=== PATIENT | female | born 1955 | race Caucasian/White ===

== ENCOUNTER 2019-05-04 20:11 | Emergency (ER) | payer OTHER ==
--- NOTE | 2019-05-04 20:47 | EDPHYS ---
Physician Documentation [facility] Name: Cookie Keller Age: 64 yrs Sex: Female : 1955 Arrival Date: 05/04/2019 Time: 20:26 Bed Waiting Private MD: ED Physician Francisco Mclaughlin HPI: 05/05 01:28 This 64 yrs old Female presents to ER via Ambulatory with complaints of tw4 Allergic Reaction. 01:28 The patient presents with nasal itching. Associated signs and symptoms: The patient has tw4 no apparent associated signs or symptoms. Possible causes: poison rubi. At home the patient or guardian has treated the symptoms with nothing. Severity of symptoms: At their worst the symptoms were moderate. 01:30 Onset: The symptoms/episode began/occurred 2 day(s) ago. The patient has not tw4 experienced similar symptoms in the past. Historical: - Allergies: 05/04 20:33 No Known Allergies; ss - PMHx: 20:33 COPD; Hypertension; sciatica; ss - PSHx: 20:33 Hysterectomy; Lumpectomy- R breast; ss - Immunization history:: Adult Immunizations up to date. - Coronavirus screen:: The patient has NOT traveled to [place], [place], or [place] in the past 14 days. Proceed with normal triage process as indicated. - Social history:: Smoking status: Patient reports the use of cigarette tobacco products, smokes one pack cigarettes per day. - Ebola Screening: : Patient denies exposure to infectious person Patient denies travel to an Ebola-affected area in the 21 days before illness onset. ROS: 05/05 01:30 Constitutional: Negative for fever, chills, and weight loss, Eyes: Negative for injury, tw4 pain, redness, and discharge, Cardiovascular: Negative for chest pain, palpitations, and edema, Respiratory: Negative for shortness of breath, cough, wheezing, and pleuritic chest pain, Abdomen/GI: Negative for abdominal pain, nausea, vomiting, diarrhea, and constipation, Back: Negative for injury and pain. Skin: Positive for rash, of the right cheek, left cheek and chin, diffusely. Exam: 01:30 Constitutional: This is a well developed, well nourished patient who is awake, alert, tw4 and in no acute distress. 01:30 Eyes: Pupils equal round and reactive to light, extra-ocular motions intact. Lids and lashes normal. Conjunctiva and sclera are non-icteric and not injected. Cornea within normal limits. Periorbital areas with no swelling, redness, or edema. Chest/axilla: Normal chest wall appearance and motion. Nontender with no deformity. No lesions are appreciated. Cardiovascular: Regular rate and rhythm with a normal S1 and S2. No gallops, murmurs, or rubs. Normal PMI, no JVD. No pulse deficits. Respiratory: Lungs have equal breath sounds bilaterally, clear to auscultation and percussion. No rales, rhonchi or wheezes noted. No increased work of breathing, no retractions or nasal flaring. Abdomen/GI: Soft, non-tender, with normal bowel sounds. No distension or tympany. No guarding or rebound. No evidence of tenderness throughout. Back: No spinal tenderness. No costovertebral tenderness. Full range of motion. 01:30 Head/face: Noted is rash, that is urticarial. 01:30 Skin: urticaria, on the right cheek, left cheek and chin. Vital Signs: 05/04 20:33 Pulse 108; Resp 16; Temp 98.4(TE); Pulse Ox 97% on R/A; Weight 69.85 kg; Height 5 ft. 4 ss in. (162.56 cm); Pain 1/10; 20:34 BP 140 / 73; ss 20:33 Body Mass Index 26.43 (69.85 kg, 162.56 cm) MDM: 20:[address] [facility] 05/05 01:30 Differential diagnosis: angioedema, Hereditary Angioedema urticaria. Data reviewed: tw4 vital signs, nurses notes. Test interpretation: by ED physician or midlevel provider: not applicable. Counseling: I had a detailed discussion with the patient and/or guardian regarding: the historical points, exam findings, and any diagnostic results supporting the discharge/admit diagnosis. Administered Medications: 05/04 08:50 Drug: predniSONE 60 mg Route: PO; ss 20:58 Follow up: Response: Medication administered at discharge. Disposition: 05/04/19 20:47 Discharged to Home. Impression: Allergic contact dermatitis due to plants, except food. - Condition is Stable. - Discharge Instructions: Allergies, Adult, Poison Rubi Dermatitis. - Prescriptions for Medrol (Huber) 4 mg Oral Tablets, Dose Pack - take 1 tablet by ORAL route as directed - follow package instructions; 1 packet. - Medication Reconciliation Form, Thank You Letter, Antibiotic Education, Prescription Opioid Use form. - Follow up: Private Physician; When: Upon discharge from the Emergency Department; Reason: Recheck today's complaints, Continuance of care. - Problem is new. - Symptoms are unchanged. Signatures: Tonya Montano RN RN Francisco Mclaughlin MD MD tw4 Corrections: (The following items were deleted from the chart) 20:58 20:47 05/04/2019 20:47 Discharged to Home. Impression: Allergic contact dermatitis due ss to plants, except food. Condition is Stable. Forms are Medication Reconciliation Form, Thank You Letter, Antibiotic Education, Prescription Opioid Use. Follow up: Private Physician; When: Upon discharge from the Emergency Department; Reason: Recheck today's complaints, Continuance of care. Problem is new. Symptoms are unchanged. tw4
--- NOTE | 2019-05-04 20:47 | ER ---
Nurse's Notes [facility] Name: Cookie Keller Age: 64 yrs Sex: Female : 1955 Arrival Date: 05/04/2019 Time: 20:26 Bed Waiting Private MD: Diagnosis: Allergic contact dermatitis due to plants, except food Presentation: 05/04 20:30 Presenting complaint: Patient states: Burned wood with poison STEFFANY two days ago. Now ss patient has red itchy rash to arms and neck. Transition of care: patient was not received from another setting of care. Onset: The symptoms/episode began/occurred this morning. Anaphylaxis evaluation, no signs or symptoms of anaphylaxis were noted. Onset of symptoms was May 03, 2019. Risk Assessment: Do you want to hurt yourself or someone else? Patient reports no desire to harm self or others. Initial Sepsis Screen: Does the patient meet any 2 criteria? No. Patient's initial sepsis screen is negative. Does the patient have a suspected source of infection? No. Patient's initial sepsis screen is negative. Care prior to arrival: None. 20:30 Method Of Arrival: Ambulatory ss 20:30 Acuity: MIMI 5 ss Historical: - Allergies: 20:33 No Known Allergies; ss - PMHx: 20:33 COPD; Hypertension; sciatica; ss - PSHx: 20:33 Hysterectomy; Lumpectomy- R breast; ss - Immunization history:: Adult Immunizations up to date. - Coronavirus screen:: The patient has NOT traveled to [place], [place], or [place] in the past 14 days. Proceed with normal triage process as indicated. - Social history:: Smoking status: Patient reports the use of cigarette tobacco products, smokes one pack cigarettes per day. - Ebola Screening: : Patient denies exposure to infectious person Patient denies travel to an Ebola-affected area in the 21 days before illness onset. Screenin:30 Abuse screen: Denies threats or abuse. Denies injuries from another. Nutritional ss screening: No deficits noted. Tuberculosis screening: Never had TB. Fall Risk None identified. Assessment: 20:30 General: Appears in no apparent distress. comfortable, Behavior is calm, cooperative, ss laughing during triage with family. Denies fever, feeling ill, fatigue, chills. Pain: Complains of pain in neck Pain currently is 1 out of 10 on a pain scale. Quality of pain is described as itching/ burning Pain began yesterday Is continuous. Respiratory: Airway is patent Respiratory effort is even, unlabored, Respiratory pattern is regular, symmetrical, Breath sounds are clear bilaterally. Denies cough, shortness of breath. GI: No signs and/or symptoms were reported involving the gastrointestinal system. Derm: Skin is pink, warm \T\ dry. Rash noted that is red, raised, neck. Musculoskeletal: Circulation, motion, and sensation intact. Range of motion: intact in all extremities. Vital Signs: 20:33 Pulse 108; Resp 16; Temp 98.4(TE); Pulse Ox 97% on R/A; Weight 69.85 kg; Height 5 ft. 4 ss in. (162.56 cm); Pain 1/10; 20:34 BP 140 / 73; ss 20:33 Body Mass Index 26.43 (69.85 kg, 162.56 cm) ED Course: 20:26 Patient arrived in ED. cf2 20:30 Patient has correct armband on for positive identification. Bed in low position. Call ss light in reach. 20:31 Guru Mobley FNP-C is [facility]. la1 20:31 Francisco Mclaughlin MD is Attending Physician. la1 20:32 Triage completed. ss 20:33 Arm band placed on right wrist. 20:57 Tonya Montano RN is Primary Nurse. ss 20:57 No provider procedures requiring assistance completed. Patient did not have IV access ss during this emergency room visit. Administered Medications: 08:50 Drug: predniSONE 60 mg Route: PO; 20:58 Follow up: Response: Medication administered at discharge. Outcome: 20:47 Discharge ordered by . tw4 20:57 Discharged to home ambulatory, with family. 20:57 Condition: good 20:57 Discharge instructions given to patient, family, Instructed on discharge instructions, the need for admit, medication usage, Demonstrated understanding of instructions, follow-up care, medications, Prescriptions given X 1. 20:58 Patient left the ED. Signatures: Tonya Montano RN RN Guru Mobley FNP-C [employer]1 Francisco Mclaughlin MD MD 4 Lizbeth Krishnamurthy cf2 Corrections: (The following items were deleted from the chart) 20:35 20:33 BP 145 / 105; Pulse 108bpm; Resp 16bpm; Pulse Ox 97% RA; Temp 98.4F Temporal; ss 69.85 kg; Height 5 ft. 4 in.; BMI: 26.4; Pain 1/10; ss
[2019-05-04] MEDS ORDERED: predniSONE 20 MG TAB ONE (20:50)
[2019-05-04 21:03] VITALS: TEMP 98.4; O2SAT 97
[2019-05-04 21:04] VITALS: BP 140/73
== END 2019-05-04 20:58 | disposition home or self-care (01) ==
LOC: ER 20:11
DX: L23.7 Allergic contact dermatitis due to plants, except food (principal); I10 Essential (primary) hypertension; F17.210 Nicotine dependence, cigarettes, uncomplicated
CPT/HCPCS: 99283; J7512

== ENCOUNTER 2019-05-15 09:16 | Emergency (ER) | payer OTHER ==
--- NOTE | 2019-05-15 11:31 | ER ---
Nurse's Notes [facility] Name: Cookie Keller Age: 64 yrs Sex: Female : 1955 Arrival Date: 05/15/2019 Time: 09:18 Bed 13 Private MD: Masoud Cuevas Diagnosis: Irritant contact dermatitis Presentation: 05/15 10:01 Presenting complaint: Patient states: was seen on May 02 and got steroids for poison iw valdo and rash is not getting any better, swelling to eyes/face and still breaking out. Transition of care: patient was not received from another setting of care. Onset of symptoms was May 15, 2019. Risk Assessment: Do you want to hurt yourself or someone else? Patient reports no desire to harm self or others. Initial Sepsis Screen: Does the patient meet any 2 criteria? No. Patient's initial sepsis screen is negative. Does the patient have a suspected source of infection? No. Patient's initial sepsis screen is negative. Care prior to arrival: None. 10:01 Method Of Arrival: Wheelchair iw 10:01 Acuity: MIMI 4 iw Triage Assessment: 10:05 General: Appears in no apparent distress. uncomfortable, Behavior is cooperative, bp appropriate for age, anxious. Pain: Denies pain. EENT: No deficits noted. Neuro: No deficits noted. Cardiovascular: No deficits noted. Respiratory: Airway is patent. GI: No signs and/or symptoms were reported involving the gastrointestinal system. : No signs and/or symptoms were reported regarding the genitourinary system. Derm: Rash noted that is itchy, raised. Musculoskeletal: No deficits noted. Historical: - Allergies: 10:03 No Known Allergies; iw - PMHx: 10:03 COPD; Hypertension; sciatica; iw - PSHx: 10:03 Hysterectomy; Lumpectomy- R breast; iw - Immunization history:: Adult Immunizations up to date. - Coronavirus screen:: The patient has NOT traveled to [place], [place], or [place] in the past 14 days. Proceed with normal triage process as indicated. - Social history:: Smoking status: Patient reports the use of cigarette tobacco products, smokes one pack cigarettes per day. - Ebola Screening: : Patient negative for fever greater than or equal to 101.5 degrees Fahrenheit, and additional compatible Ebola Virus Disease symptoms Patient denies exposure to infectious person Patient denies travel to an Ebola-affected area in the 21 days before illness onset No symptoms or risks identified at this time. Screenin:44 Abuse screen: Denies threats or abuse. Denies injuries from another. Nutritional bp screening: No deficits noted. Tuberculosis screening: No symptoms or risk factors identified. Fall Risk None identified. Assessment: 10:05 General: SEE TRIAGE NOTE. bp 11:00 Reassessment: Patient denies pain at this time. Respiratory: Airway is patent. bp 11:49 Reassessment: PT D/C HOME AMBULATORY, DX WITH CONTACT DERMATITIS. bp Vital Signs: 10:03 BP 129 / 84; Pulse 80; Resp 18; Temp 97.8; Pulse Ox 96% on R/A; Weight 69.85 kg; Height iw 5 ft. 3 in. (160.02 cm); 11:45 BP 131 / 79; Pulse 87; Resp 17; Temp 98; Pulse Ox 96% ; bp 10:03 Body Mass Index 27.28 (69.85 kg, 160.02 cm) iw ED Course: 09:18 Patient arrived in ED. as 09:18 Masoud Cuevas MD is Private Physician. as 09:57 Gladys Baltazar [facility]-C [facility]. snw 09:57 Monique Rodriguez MD is Attending Physician. snw 10:03 Triage completed. iw 10:03 Arm band placed on. iw 10:45 Masoud Callahan, BRUNILDA is Primary Nurse. bp 11:30 Masoud Cuevas MD is Referral Physician. snw 11:44 Patient has correct armband on for positive identification. Bed in low position. Call bp light in reach. Side rails up X2. 11:44 No provider procedures requiring assistance completed. Patient did not have IV access bp during this emergency room visit. Administered Medications: 11:42 Drug: predniSONE 40 mg Route: PO; bp 11:50 Follow up: Response: No adverse reaction bp 11:42 Drug: Atarax 50 mg Route: PO; bp 11:50 Follow up: Response: No adverse reaction bp 11:42 Drug: Pepcid 20 mg Route: PO; bp 11:50 Follow up: Response: No adverse reaction bp Outcome: 11:30 Discharge ordered by . snw 11:49 Discharged to home ambulatory. bp 11:49 Condition: stable 11:49 Discharge instructions given to patient, Instructed on discharge instructions, follow up and referral plans. medication usage, Demonstrated understanding of instructions, follow-up care, medications, Prescriptions given X 3. 11:51 Patient left the ED. bp Signatures: Gladys Baltazar, DATA SCIENCES DIRECTOR-C DATA SCIENCES DIRECTOR-Csnw Diya Holden Irene, RN RN iw Masoud Callahan RN RN bp
--- NOTE | 2019-05-15 11:32 | EDPHYS ---
Physician Documentation [facility] Name: Cookie Keller Age: 64 yrs Sex: Female : 1955 Arrival Date: 05/15/2019 Time: 09:18 Bed 13 Private MD: Masoud Cuevas ED Physician Monique Rodriguez HPI: 05/15 12:50 This 64 yrs old Female presents to ER via Wheelchair with complaints of Rash snw - poison valdo. 12:50 The patient's rash thought to be caused by Dermatitis. The rash is located on the body snw diffusely. The rash can be described as diffuse, erythematous. Onset: The symptoms/episode began/occurred suddenly, 2 week(s) ago, and became persistent. Associated signs and symptoms: Pertinent positives: burning sensation, itching, facial edema. Severity of symptoms: At their worst the symptoms were moderate severe in the emergency department the symptoms are unchanged. Treatment given at home: OTC lotion/cream. The patient has not experienced similar symptoms in the past. Pt had a round of steroids just post exposure at the end of April. Last steroid one week ago, symptoms have not abated. Historical: - Allergies: 10:03 No Known Allergies; iw - PMHx: 10:03 COPD; Hypertension; sciatica; iw - PSHx: 10:03 Hysterectomy; Lumpectomy- R breast; iw - Immunization history:: Adult Immunizations up to date. - Coronavirus screen:: The patient has NOT traveled to [place], [place], or [place] in the past 14 days. Proceed with normal triage process as indicated. - Social history:: Smoking status: Patient reports the use of cigarette tobacco products, smokes one pack cigarettes per day. - Ebola Screening: : Patient negative for fever greater than or equal to 101.5 degrees Fahrenheit, and additional compatible Ebola Virus Disease symptoms Patient denies exposure to infectious person Patient denies travel to an Ebola-affected area in the 21 days before illness onset No symptoms or risks identified at this time. ROS: 12:49 Constitutional: Negative for fever, chills, and weight loss, Eyes: Negative for injury, snw pain, redness, and discharge, ENT: Negative for injury, pain, and discharge, Neck: Negative for injury, pain, and swelling, Cardiovascular: Negative for chest pain, palpitations, and edema, Respiratory: Negative for shortness of breath, cough, wheezing, and pleuritic chest pain, Abdomen/GI: Negative for abdominal pain, nausea, vomiting, diarrhea, and constipation, Back: Negative for injury and pain, : Negative for injury, bleeding, discharge, and swelling, MS/Extremity: Negative for injury and deformity, Neuro: Negative for headache, weakness, numbness, tingling, and seizure. 12:49 Skin: Positive for rash, swelling, itching. Exam: 12:41 Constitutional: This is a well developed, well nourished patient who is awake, alert, snw and in no acute distress. 12:41 Eyes: Pupils equal round and reactive to light, extra-ocular motions intact. Lids and lashes normal. Conjunctiva and sclera are non-icteric and not injected. Cornea within normal limits. Periorbital areas with no swelling, redness, or edema. ENT: Nares patent. No nasal discharge, no septal abnormalities noted. Tympanic membranes are normal and external auditory canals are clear. Oropharynx with no redness, swelling, or masses, exudates, or evidence of obstruction, uvula midline. Mucous membranes moist. Neck: Trachea midline, no thyromegaly or masses palpated, and no cervical lymphadenopathy. Supple, full range of motion without nuchal rigidity, or vertebral point tenderness. No Meningismus. Chest/axilla: Normal chest wall appearance and motion. Nontender with no deformity. No lesions are appreciated. Cardiovascular: Regular rate and rhythm with a normal S1 and S2. No gallops, murmurs, or rubs. Normal PMI, no JVD. No pulse deficits. Respiratory: Lungs have equal breath sounds bilaterally, clear to auscultation and percussion. No rales, rhonchi or wheezes noted. No increased work of breathing, no retractions or nasal flaring. Abdomen/GI: Soft, non-tender, with normal bowel sounds. No distension or tympany. No guarding or rebound. No evidence of tenderness throughout. Back: No spinal tenderness. No costovertebral tenderness. Full range of motion. MS/ Extremity: Pulses equal, no cyanosis. Neurovascular intact. Full, normal range of motion. Neuro: Awake and alert, GCS 15, oriented to person, place, time, and situation. Cranial nerves II-XII grossly intact. Motor strength 5/5 in all extremities. Sensory grossly intact. Cerebellar exam normal. Normal gait. Psych: Awake, alert, with orientation to person, place and time. Behavior, mood, and affect are within normal limits. 12:41 Head/face: Noted is rash, consistent with contact dermatitis swelling, that is moderate, of the right eye, right cheek, left cheek, left eye and mouth. 12:41 Skin: Appearance: normal except for affected area, contact dermatitis. Vital Signs: 10:03 BP 129 / 84; Pulse 80; Resp 18; Temp 97.8; Pulse Ox 96% on R/A; Weight 69.85 kg; Height iw 5 ft. 3 in. (160.02 cm); 11:45 BP 131 / 79; Pulse 87; Resp 17; Temp 98; Pulse Ox 96% ; bp 10:03 Body Mass Index 27.28 (69.85 kg, 160.02 cm) iw MDM: 10:44 Patient medically screened. snw 12:49 Data reviewed: vital signs, nurses notes. Data interpreted: Pulse oximetry: on room air snw is 96 %. Interpretation: acceptable. Counseling: I had a detailed discussion with the patient and/or guardian regarding: the historical points, exam findings, and any diagnostic results supporting the discharge/admit diagnosis, the need for outpatient follow up, to return to the emergency department if symptoms worsen or persist or if there are any questions or concerns that arise at home. Special discussion: Based on the history and exam findings, there is no indication for further emergent testing or inpatient evaluation. I discussed with the patient/guardian the need to see the insulation professional for further evaluation of the symptoms. I discussed with the patient/guardian the need to see the primary care provider for further evaluation of the symptoms. Administered Medications: 11:42 Drug: predniSONE 40 mg Route: PO; bp 11:50 Follow up: Response: No adverse reaction bp 11:42 Drug: Atarax 50 mg Route: PO; bp 11:50 Follow up: Response: No adverse reaction bp 11:42 Drug: Pepcid 20 mg Route: PO; bp 11:50 Follow up: Response: No adverse reaction bp Disposition: 18:18 Co-signature as Attending Physician, Monique Rodriguez MD. ma2 Disposition: 05/15/19 11:30 Discharged to Home. Impression: Irritant contact dermatitis. - Condition is Stable. - Discharge Instructions: Contact Dermatitis, Hypertension. - Prescriptions for Vistaril 25 mg Oral capsule - take 2 capsule by ORAL route 4 times per day as needed for itching; 40 capsule. Pepcid 20 mg Oral Tablet - take 1 tablet by ORAL route every 12 hours for 10 days; 20 tablet. Prednisone 20 mg Oral Tablet - take 1 tablet by ORAL route every 12 hours for 5 days; 10 tablet. - Medication Reconciliation Form, Thank You Letter, Antibiotic Education, Prescription Opioid Use form. - Follow up: Masoud Cuevas MD; When: 2 - 3 days; Reason: Recheck today's complaints, Continuance of care, Re-evaluation by your physician. Follow up: Emergency Department; When: As needed; Reason: Worsening of condition. Signatures: Gladys Baltazar, AERODYNAMICS ENGINEER-C AERODYNAMICS ENGINEER-Csnw Elizabeth Phipps RN RN iw Masoud Callahan RN RN bp Alzahri, Mohammad, MD MD ma2 Corrections: (The following items were deleted from the chart) 11:51 11:30 05/15/2019 11:30 Discharged to Home. Impression: Irritant contact dermatitis. bp Condition is Stable. Forms are Medication Reconciliation Form, Thank You Letter, Antibiotic Education, Prescription Opioid Use. Follow up: Masoud Cuevas; When: 2 - 3 days; Reason: Recheck today's complaints, Continuance of care, Re-evaluation by your physician. Follow up: Emergency Department; When: As needed; Reason: Worsening of condition. snw
[2019-05-15] MEDS ORDERED: FAMOTIDINE 20 MG TAB ONE (11:43)
[2019-05-15] MEDS ORDERED: predniSONE 20 MG TAB ONE (11:43)
[2019-05-15] MEDS ORDERED: hydrOXYzine HCL 25 MG TAB ONE (11:43)
[2019-05-15 11:57] VITALS: O2SAT 96
[2019-05-15 11:58] VITALS: BP 131/79; TEMP 98
== END 2019-05-15 11:51 | disposition home or self-care (01) ==
LOC: ER 09:16
DX: L24.9 Irritant contact dermatitis, unspecified cause (principal); F17.210 Nicotine dependence, cigarettes, uncomplicated
CPT/HCPCS: 99283; J7512

== ENCOUNTER 2020-04-01 10:42 | Emergency (ER) | payer OTHER ==
--- OUTSIDE RECORDS SUMMARY | 2020-04-01 10:44 | XMS REPORT | Continuity of Care Document ---
:1955 Author Organization [facility] t Address [address] [place] [address] Dr. Javed [address] [place] [id number] Care Team Providers Name Role Phone Unavailable Unavailable Unavailable Problems This patient has no known problems. Allergies, Adverse Reactions, Alerts This patient has no known allergies or adverse reactions. Medications This patient has no known medications. Procedures This patient has no known procedures. Encounters Start End Encounter Admission Attending Care Care Encounter Source Date/Time Date/Time Type Type Clinicians Facility Department ID 2020-03-14 2020-03-14 Outpatient [id number] 08:30:00 08:30:00 Results This patient has no known results.
[2020-04-01] MEDS ORDERED: FENTANYL 50 MCG/PATCH TD ONE (11:00)
[2020-04-01] MEDS ORDERED: DIAZEPAM 5 MG TABLET ONE (11:11)
--- NOTE | 2020-04-01 11:59 | ER ---
Nurse's Notes [facility] Name: Cookie Keller Age: 65 yrs Sex: Female : 1955 Arrival Date: 04/01/2020 Time: 10:47 Bed 15 Private MD: Diagnosis: Pain in right shoulder;Back pain;Muscle spasm of back Presentation: 04/01 10:47 Chief complaint: Patient states: Fell 1 month ago and since fall she had upper back aa5 pain but today pain increased. Pt reports she is taking Flexeril and tramadol for back pain at home. Pt denies falling today or any other known injury. 10:47 Coronavirus screen: Client denies travel out of the [place] in the last 14 days. At this aa5 time, the client does not indicate any symptoms associated with coronavirus-19. Ebola Screen: Patient negative for fever greater than or equal to 101.5 degrees Fahrenheit, and additional compatible Ebola Virus Disease symptoms. Initial Sepsis Screen: Does the patient meet any 2 criteria? No. Patient's initial sepsis screen is negative. Does the patient have a suspected source of infection? No. Patient's initial sepsis screen is negative. Risk Assessment: Do you want to hurt yourself or someone else? Patient reports no desire to harm self or others. Onset of symptoms was April 01, 2020. 10:47 Acuity: MIMI 4 aa5 10:47 Method Of Arrival: EMS: [facility] aa5 Historical: - Allergies: 10:47 No Known Allergies; aa5 - PMHx: 10:47 COPD; Hypertension; sciatica; Cancer; Fibromyalgia; aa5 - PSHx: 10:47 Hysterectomy; Lumpectomy- R breast; Cholecystectomy; aa5 - Immunization history:: Adult Immunizations up to date. - Social history:: Smoking status: unknown. Screenin:45 Abuse screen: Denies threats or abuse. Nutritional screening: No deficits noted. ll1 Tuberculosis screening: No symptoms or risk factors identified. Fall Risk Fall in past 12 months (25 points). Ambulatory Aid- Crutches/Cane/Walker (15 pts). Gait- Impaired (20 pts.). Total Bartholomew Fall Scale indicates High Risk Score (45 or more points). Fall prevention measures have been instituted. Side Rails Up X 2 Placed Close to Nursing Station Frequent Obs/Assessments Occuring Family Present and informed to notify staff if the need to leave the bedside As available patient and family educated on Fall Prevention Program and Strategies. Assessment: 11:00 General: Appears uncomfortable, Behavior is calm, cooperative, appropriate for age. ll1 Pain: Complains of pain in right scapular area Pain currently is 10 out of 10 on a pain scale. Quality of pain is described as aching, Aggravated by increased activity. Neuro: Level of Consciousness is awake, alert, obeys commands, Oriented to person, place, time, situation, Appropriate for age Agricultural Education Teacher are equal bilaterally Moves all extremities. Full function Speech is normal, Facial symmetry appears normal. Musculoskeletal: Circulation, motion, and sensation intact. Capillary refill < 3 seconds, Reports pain in right scapular area. Vital Signs: 10:47 BP 105 / 75; Pulse 96; Resp 18 S; Temp 98.3(O); Pulse Ox 98% on R/A; aa5 12:15 BP 116 / 59; Pulse 106; Resp 17; Pulse Ox 100% ; Pain 5/10; ll1 ED Course: 10:47 Patient arrived in ED. ll1 10:47 Arm band placed on Patient placed in an exam room, on a stretcher. aa5 10:51 Triage completed. aa5 10:51 Tj Fallon MD is Attending Physician. kdr 10:52 Gladys Boston FNP-C is PHCP. snw 10:54 Timothy Mathur, BRUNILDA is Primary Nurse. ll1 11:46 Patient has correct armband on for positive identification. Bed in low position. Call ll1 light in reach. Side rails up X 1. Pulse ox on. NIBP on. 12:17 No provider procedures requiring assistance completed. Patient did not have IV access ll1 during this emergency room visit. Administered Medications: 11:03 Drug: Valium 5 mg {Note: rass0.} Route: PO; ll1 11:21 Drug: fentaNYL Patch (50 mcg/hr) 1 patches {Note: R arm.} Route: Transdermal; Site: ll1 affected area; 12:17 Follow up: Response: No adverse reaction; Pain is decreased; RASS: Alert and Calm (0) ll1 Outcome: 11:59 Discharge ordered by . snw 12:17 Patient left the ED. ll1 12:17 Discharged to home ambulatory. ll1 12:17 Condition: stable 12:17 Discharge instructions given to patient, Instructed on discharge instructions, follow up and referral plans. medication usage, Demonstrated understanding of instructions, follow-up care, medications, Prescriptions given X 1. Signatures: Tj Fallon MD MD kdr Gladys Boston, PHYSICIAN GYNECOLOGIST-C PHYSICIAN GYNECOLOGIST-Csnw Ayanna Pinzon RN RN aa5 Timothy Mathur RN RN ll1 Corrections: (The following items were deleted from the chart) 10:51 10:47 Chief complaint: Patient states: Fell 1 month ago and since fall she had upper aa5 back pain but today pain increased. Pt reports she is taking Flexeril and tramadol for back pain at home. aa5
--- NOTE | 2020-04-01 12:00 | EDPHYS ---
Physician Documentation [facility] Name: Cookie Keller Age: 65 yrs Sex: Female : 1955 Arrival Date: 04/01/2020 Time: 10:47 Bed 15 Private MD: ED Physician Tj Fallon HPI: 04/01 11:29 This 65 yrs old Female presents to ER via EMS with complaints of Back Pain. snw 11:29 The patient presents with pain that is acute. The symptoms are located in the right snw shoulder, posterior neck. Onset: The symptoms/episode began/occurred suddenly. The pain does not radiate. Associated signs and symptoms: Pertinent positives: numbness, paresthesias. The problem was sustained from a chronic condition, Metastatic cancer. Severity of symptoms: At their worst the symptoms were moderate, severe. The patient has experienced a previous episode. seeing Dr. Rodriguez. no LOC. Historical: - Allergies: 10:47 No Known Allergies; aa5 - PMHx: 10:47 COPD; Hypertension; sciatica; Cancer; Fibromyalgia; aa5 - PSHx: 10:47 Hysterectomy; Lumpectomy- R breast; Cholecystectomy; aa5 - Immunization history:: Adult Immunizations up to date. - Social history:: Smoking status: unknown. ROS: 11:28 Constitutional: Negative for fever, chills, and weight loss, Eyes: Negative for injury, snw pain, redness, and discharge, ENT: Negative for injury, pain, and discharge, Neck: Negative for injury, pain, and swelling, Cardiovascular: Negative for chest pain, palpitations, and edema, Respiratory: Negative for shortness of breath, cough, wheezing, and pleuritic chest pain, Abdomen/GI: Negative for abdominal pain, nausea, vomiting, diarrhea, and constipation, : Negative for injury, bleeding, discharge, and swelling, Skin: Negative for injury, rash, and discoloration, Neuro: Negative for headache, weakness, numbness, tingling, and seizure, Psych: Negative for depression, anxiety, suicide ideation, homicidal ideation, and hallucinations. 11:28 MS/extremity: Positive for injury or acute deformity, pain, tenderness, of the right trapezius and right scapular area. Exam: 10:53 Constitutional: This is a well developed, well nourished patient who is awake, alert, snw and in no acute distress. Head/Face: Normocephalic, atraumatic. Eyes: Pupils equal round and reactive to light, extra-ocular motions intact. Lids and lashes normal. Conjunctiva and sclera are non-icteric and not injected. Cornea within normal limits. Periorbital areas with no swelling, redness, or edema. ENT: Nares patent. No nasal discharge, no septal abnormalities noted. Tympanic membranes are normal and external auditory canals are clear. Oropharynx with no redness, swelling, or masses, exudates, or evidence of obstruction, uvula midline. Mucous membranes moist. Neck: Trachea midline, no thyromegaly or masses palpated, and no cervical lymphadenopathy. Supple, full range of motion without nuchal rigidity, or vertebral point tenderness. No Meningismus. Chest/axilla: Normal chest wall appearance and motion. Nontender with no deformity. No lesions are appreciated. Cardiovascular: Regular rate and rhythm with a normal S1 and S2. No gallops, murmurs, or rubs. Normal PMI, no JVD. No pulse deficits. Respiratory: Lungs have equal breath sounds bilaterally, clear to auscultation and percussion. No rales, rhonchi or wheezes noted. No increased work of breathing, no retractions or nasal flaring. Abdomen/GI: Soft, non-tender, with normal bowel sounds. No distension or tympany. No guarding or rebound. No evidence of tenderness throughout. Back: No spinal tenderness. No costovertebral tenderness. Full range of motion. Skin: Warm, dry with normal turgor. Normal color with no rashes, no lesions, and no evidence of cellulitis. Neuro: Awake and alert, GCS 15, oriented to person, place, time, and situation. Cranial nerves II-XII grossly intact. Motor strength 5/5 in all extremities. Sensory grossly intact. Cerebellar exam normal. Normal gait. Psych: Awake, alert, with orientation to person, place and time. Behavior, mood, and affect are within normal limits. 10:53 Musculoskeletal/extremity: Extremities: grossly normal except: pain, tenderness. 10:53 Neuro: Exam negative for acute changes. Vital Signs: 10:47 BP 105 / 75; Pulse 96; Resp 18 S; Temp 98.3(O); Pulse Ox 98% on R/A; aa5 12:15 BP 116 / 59; Pulse 106; Resp 17; Pulse Ox 100% ; Pain 5/10; ll1 MDM: 11:24 Patient medically screened. snw 12:00 Data reviewed: vital signs, nurses notes. Data interpreted: Pulse oximetry: on room air snw is 98 %. Interpretation: normal. Counseling: I had a detailed discussion with the patient and/or guardian regarding: the historical points, exam findings, and any diagnostic results supporting the discharge/admit diagnosis, the need for outpatient follow up, to return to the emergency department if symptoms worsen or persist or if there are any questions or concerns that arise at home. Special discussion: Based on the history and exam findings, there is no indication for further emergent testing or inpatient evaluation. I discussed with the patient/guardian the need to see the digital coordinator/oncologist for further evaluation of the symptoms. I discussed with the patient/guardian the need to see the machine paint mixer for further evaluation of the symptoms. I discussed with the patient/guardian the need to see the primary care provider for further evaluation of the symptoms. Administered Medications: 11:03 Drug: Valium 5 mg {Note: rass0.} Route: PO; ll1 11:21 Drug: fentaNYL Patch (50 mcg/hr) 1 patches {Note: R arm.} Route: Transdermal; Site: ll1 affected area; 12:17 Follow up: Response: No adverse reaction; Pain is decreased; RASS: Alert and Calm (0) ll1 Disposition: 12:56 Co-signature as Attending Physician, Tj Fallon MD I agree with the assessment and kdr plan of care. Disposition: 04/01/20 11:59 Discharged to Home. Impression: Pain in right shoulder, Back pain, Muscle spasm of back. - Condition is Stable. - Discharge Instructions: Muscle Cramps and Spasms, Musculoskeletal Pain, Cryotherapy, Heat Therapy. - Prescriptions for orphenadrine citrate 100 mg Oral Tablet Sustained Release - take 1 tablet by ORAL route 2 times per day As needed; 20 tablet. - Medication Reconciliation Form, Thank You Letter, Antibiotic Education, Prescription Opioid Use form. - Follow up: Emergency Department; When: As needed; Reason: Worsening of condition. Follow up: Private Physician; When: 2 - 3 days; Reason: Recheck today's complaints, Continuance of care, Re-evaluation by your physician. Signatures: Tj Fallon MD MD kdr Gladys Boston, SENIOR MORTGAGE UNDERWRITER-C SENIOR MORTGAGE UNDERWRITER-Csnw Ayanna Pinzon, RN RN aa5 Timothy Mathur, BRUNILDA RN ll1 Corrections: (The following items were deleted from the chart) 12:17 11:59 04/01/2020 11:59 Discharged to Home. Impression: Pain in right shoulder; Back ll1 pain; Muscle spasm of back. Condition is Stable. Forms are Medication Reconciliation Form, Thank You Letter, Antibiotic Education, Prescription Opioid Use. Follow up: Emergency Department; When: As needed; Reason: Worsening of condition. Follow up: Private Physician; When: 2 - 3 days; Reason: Recheck today's complaints, Continuance of care, Re-evaluation by your physician. snw
[2020-04-01 12:21] VITALS: BP 105/75; TEMP 98.3; O2SAT 98
== END 2020-04-01 12:17 | disposition home or self-care (01) ==
LOC: ER 10:42
DX: M62.830 Muscle spasm of back (principal); M25.511 Pain in right shoulder; I10 Essential (primary) hypertension
CPT/HCPCS: 99284

== ENCOUNTER 2020-10-11 11:43 | Emergency (ER) | payer OTHER ==
--- OUTSIDE RECORDS SUMMARY | 2020-10-11 11:53 | XMS REPORT | Continuity of Care Document ---
:1955 Author Organization [facility] t Address [address] [place] [address] Dr. Javed [address] [place] [id number] Care Team Providers Name Role Phone Unavailable [...]
[2020-10-11 12:55] LABS: Absolute Lymphocytes (CBC) 1.9 K/uL (0.7-4.9); Basophils % 0.6 % (0-1.3); Hematocrit 37.5 % (36.0-45.0)
[2020-10-11 12:56] LABS: Protime INR 1.21
--- NOTE | 2020-10-11 12:56 | RAD REPORT ---
EXAM DESCRIPTION: RAD - Chest Single View - 10/11/2020 12:47 pm CLINICAL HISTORY: COUGH COMPARISON: Portable March 2017 TECHNIQUE: AP portable chest image was obtained 10/11/2020 12:47 pm . FINDINGS: Lungs are clear. Interstitial pattern matches comparison. Heart and vasculature are normal . No measurable pleural effusion and no pneumothorax. No acute bony abnormality seen. No acute aortic findings suspected. IMPRESSION: No acute cardiopulmonary process. No significant change from comparison study.
--- NOTE | 2020-10-11 12:58 | RAD REPORT ---
EXAM DESCRIPTION: RAD - Shoulder Left 2 View - 10/11/2020 12:47 pm CLINICAL HISTORY: PAIN COMPARISON: Chest Abdomen W Con dated 07/19/2020 TECHNIQUE: Internal and external rotation views of the left shoulder were obtained. FINDINGS: There is no fracture or dislocation. Mild AC joint degenerative changes are present with t he head of the clavicle encroaching somewhat into the acromial humeral joint space. No abnormal soft tissue calcification. Sclerotic focus in the glenoid of the scapula seen similar to the July CT stud y. No suspicious soft tissue finding. IMPRESSION: Mild left shoulder degenerative change as detailed. No acute finding.
[2020-10-11] MEDS ORDERED: ONDANSETRON 4 MG/2 ML VIAL ONE ×2 (13:07→16:44)
[2020-10-11] MEDS ORDERED: NA CHLORIDE 0.9% 500 ML ONE (13:07)
[2020-10-11] MEDS ORDERED: FENTANYL CITR 100 MCG/2 ML ONE ×2 (13:07→16:44)
[2020-10-11] MEDS ORDERED: NA CHLORIDE 0.9% 1,000 ML ONE (13:08)
[2020-10-11 13:12] LABS: ALT/SGPT 42 U/L (12-78); AST/SGOT 70 U/L (15-37); Albumin 2.7 g/dL (3.4-5.0); Alkaline Phosphatase 710 U/L (45-117); BUN Blood Urea Nitrogen 9 mg/dL (7-18); Bicarbonate 30 mmol/L (21-32); Bilirubin Direct 0.3 mg/dL (0-0.2); Bilirubin Total 0.7 mg/dL (0.2-1.0); Glucose Level 110 mg/dL (74-106); Lipase 77 U/L (73-393); Magnesium 1.9 mg/dL (1.8-2.4); NT PRO-BNP 118 pg/mL (<125); Potassium 3.6 mmol/L (3.5-5.1); Protein, Total 8.6 g/dL (6.4-8.2); Sodium Level 133 mmol/L (136-145); Troponin (Emerg Dept Use Only) < 0.02 ng/mL (0.0-0.045)
--- NOTE | 2020-10-11 13:22 | RAD REPORT ---
EXAM DESCRIPTION: CT - C Spine Wo Con - 10/11/2020 1:04 pm CLINICAL HISTORY: Neck pain,, history of lung mass COMPARISON: None. TECHNIQUE: Axial 2 mm thick images of the cervical spine were obtained with sagittal and coronal rec onstruction images generated and reviewed. All CT scans are performed using dose optimization technique as appropriate and may include automated exposure control or mA/KV adjustment according to patient size. FINDINGS: No bony skullbase lesion identified. Mastoid air cells are clear. Biconcave 30% compression fracture of the C6 body. There are lytic changes in the body with thinning and punctate areas of disruption involving the posterior wall. Similar lytic pattern extends into the left C6 pedicle and the facet joint. Left transverse foramen is involved as well. Posterior wall tapia s not bulge into the central canal. The C6-7 disc space is narrowed. Central canal detail is too limi carri to allow assessment of any disc or paraspinal component in the central canal. The remaining cervical vertebrae are normal in height. No fracture or metastatic lesions in the remai alexandra vertebrae. No other disc space narrowing. No paraspinal mass or hematoma. Expansile bony destructive changes are seen in the right first rib at the costovertebral junction. IMPRESSION: Bony metastatic lesion in the C6 body showing approximately 30% compression fracture. Me tastatic disease extends into the left C6 pedicle and facet joint. There is thinning and probable disruption of the posterior wall C6 with no bony encroachment into the central canal. No gross evidence for central canal encroachment from mass or disc. Central canal det ail is inherently limited on CT imaging. Expansile bone destructive lesion in the right first rib at the costovertebral junction.
--- NOTE | 2020-10-11 13:26 | RAD REPORT ---
EXAM DESCRIPTION: CT chest abdomen and pelvis CLINICAL HISTORY: Cough COMPARISON: Chest CT 07/19/2020 FINDINGS: A 5 millimeter left upper lobe pulmonary lesion is unchanged. No axillary or mediastinal l ymphadenopathy. Negative for pulmonary embolism. No edema or evidence of pneumonia. The heart size is normal. No pericardial effusion. Re- demonstrated numerous metastatic lesions in the liver which have increased in size. For example, a lesion in the right hepatic lobe measuring approximately 7.3 centimeters previously measured 5.9 ce ntimeters. A lesion in the left hepatic lobe which previously measured 3.5 centimeters now measures 5 .2 centimeters. The right adrenal nodules not significantly changed. Pancreas unremarkable. Summer ex trahepatic biliary ductal dilatation. No stones or hydronephrosis. Hysterectomy. No bowel obstruction is identified. Cholecystectomy. Osseous metastatic disease again identified. Increased height loss n oted at a pathologic T5 compression fracture. There is approximately 80% maximal loss of vertebral emperatriz dy height. No osseous lesion at T9 has a modestly increased in size. IMPRESSION: Increased height loss involving a pathologic T5 compression fracture. No significant bon y retropulsion. Continued disease progression with enlarging liver and osseous lesions.
--- NOTE | 2020-10-11 14:39 | EDPHYS ---
Physician Documentation [facility] Name: Cookie Keller Age: 65 yrs Sex: Female : 1955 Arrival Date: 10/11/2020 Time: 11:43 Bed 6 Private MD: HILLARY Physician Alex Adorno HPI: 10/11 14:27 This 65 yrs old Female presents to ER via EMS with complaints of Shoulder krunal Pain. 14:27 The patient or guardian complains of decreased range of motion, pain, that is acute. krunal left shoulder, left trapezius and left sternocleidomastoid. Context: The problem was sustained at an industrial site. Onset: The symptoms/episode began/occurred 2 day(s) ago. Modifying factors: the symptoms are alleviated by remaining still, The symptoms are aggravated by movement. Associated signs and symptoms: Pertinent positives: of the left arm pain , standing. Severity of symptoms: At their worst the symptoms were moderate, in the emergency department the symptoms are unchanged. Treatment prior to arrival includes: no previous treatment. The patient has experienced similar episodes in the past, several times, worse. Historical: - Allergies: 11:49 No Known Allergies; iw - PMHx: 11:48 Cancer; COPD; Fibromyalgia; Hypertension; sciatica; iw - Immunization history:: Adult Immunizations unknown. - Family history:: not pertinent. - Social history:: Smoking status: Patient reports the use of cigarette tobacco products, denies chronic smoking, but will smoke occasionally. ROS: 14:30 Constitutional: Negative for fever, chills, and weight loss, Eyes: Negative for injury, krunal pain, redness, and discharge, ENT: Negative for injury, pain, and discharge, Cardiovascular: Negative for chest pain, palpitations, and edema, Respiratory: Negative for shortness of breath, cough, wheezing, and pleuritic chest pain, Abdomen/GI: Negative for abdominal pain, nausea, vomiting, diarrhea, and constipation, Back: Negative for injury and pain, : Negative for injury, bleeding, discharge, and swelling, MS/Extremity: Negative for injury and deformity, Skin: Negative for injury, rash, and discoloration, Neuro: Negative for headache, weakness, numbness, tingling, and seizure, Psych: Negative for depression, anxiety, suicide ideation, homicidal ideation, and hallucinations, Allergy/Immunology: Negative for hives, rash, and allergies, Endocrine: Negative for neck swelling, polydipsia, polyuria, polyphagia, and marked weight changes, Hematologic/Lymphatic: Negative for swollen nodes, abnormal bleeding, and unusual bruising. 14:30 Neck: Positive for pain at rest, tenderness. Exam: 14:31 Constitutional: This is a well developed, well nourished patient who is awake, alert, krunal and in no acute distress. Head/Face: Normocephalic, atraumatic. Eyes: Pupils equal round and reactive to light, extra-ocular motions intact. Lids and lashes normal. Conjunctiva and sclera are non-icteric and not injected. Cornea within normal limits. Periorbital areas with no swelling, redness, or edema. ENT: Nares patent. No nasal discharge, no septal abnormalities noted. Tympanic membranes are normal and external auditory canals are clear. Oropharynx with no redness, swelling, or masses, exudates, or evidence of obstruction, uvula midline. Mucous membranes moist. Chest/axilla: Normal chest wall appearance and motion. Nontender with no deformity. No lesions are appreciated. Cardiovascular: Regular rate and rhythm with a normal S1 and S2. No gallops, murmurs, or rubs. Normal PMI, no JVD. No pulse deficits. Respiratory: Lungs have equal breath sounds bilaterally, clear to auscultation and percussion. No rales, rhonchi or wheezes noted. No increased work of breathing, no retractions or nasal flaring. Abdomen/GI: Soft, non-tender, with normal bowel sounds. No distension or tympany. No guarding or rebound. No evidence of tenderness throughout. Back: No spinal tenderness. No costovertebral tenderness. Full range of motion. Female : Normal external genitalia. Skin: Warm, dry with normal turgor. Normal color with no rashes, no lesions, and no evidence of cellulitis. MS/ Extremity: Pulses equal, no cyanosis. Neurovascular intact. Full, normal range of motion. Neuro: Awake and alert, GCS 15, oriented to person, place, time, and situation. Cranial nerves II-XII grossly intact. Motor strength 5/5 in all extremities. Sensory grossly intact. Cerebellar exam normal. Normal gait. Psych: Awake, alert, with orientation to person, place and time. Behavior, mood, and affect are within normal limits. 14:31 Neck: C-spine: C-collar placed in ED. 14:33 ECG was reviewed by the Attending Physician. krunal Vital Signs: 11:51 BP 151 / 87; Pulse 124; Resp 20 S; Pulse Ox 92% on R/A; iw 13:25 BP 127 / 75; Pulse 120; Resp 18 S; Pulse Ox 90% on R/A; aa5 16:32 BP 146 / 74; Pulse 84; Resp 16; Pulse Ox 98% on 2 lpm NC; iw MDM: 11:46 Patient medically screened. krunal 14:32 Differential diagnosis: DJD, tendonitis. Data reviewed: vital signs, nurses notes, lab krunal test result(s), EKG, radiologic studies, CT scan, plain films. Data interpreted: pickle processor: rate is 124 beats/min, rhythm is regular, Pulse oximetry: on room air is 92 %. Test interpretation: by ED physician or midlevel provider: ECG, plain radiologic studies. Counseling: I had a detailed discussion with the patient and/or guardian regarding: the historical points, exam findings, and any diagnostic results supporting the discharge/admit diagnosis, lab results, radiology results, the need to transfer to another facility, for higher level of care, [facility] does not immediately have the required specialist. 10/11 12:01 Order name: Basic Metabolic Panel; Complete Time: 14:[address] [facility] 10/11 12:01 Order name: CBC with Diff; Complete Time: 14:[address] [facility] 10/11 12:01 Order name: LFT's; Complete Time: 14:[address] [facility] 10/11 12:01 Order name: Magnesium; Complete Time: 14:[address] [facility] 10/11 12:01 Order name: NT PRO-BNP; Complete Time: 14:[address] [facility] 10/11 12:01 Order name: PT-INR; Complete Time: 14:[address] [facility] 10/11 12:01 Order name: Troponin (emerg Dept Use Only); Complete Time: 14:[address] [facility] 10/11 12:01 Order name: XRAY Chest (1 view); Complete Time: 14:[address] [facility] 10/11 12:01 Order name: Lipase; Complete Time: 14:[address] [facility] 10/11 12:01 Order name: CT C Spine; Complete Time: 14:[address] [facility] 10/11 12:01 Order name: CT Chest, Abdomen, Pelvis - W/Contrast; Complete Time: 14:[address] [facility] 10/11 16:24 Order name: SARS-COV-2 RT PCR EDMS 10/11 12:01 Order name: EKG; Complete Time: 12:[address] [facility] 10/11 12:01 Order name: Cardiac monitoring; Complete Time: 12:[address] [facility] 10/11 12:01 Order name: EKG - Nurse/Tech; Complete Time: 12:[address] [facility] 10/11 12:01 Order name: IV Saline Lock; Complete Time: 12:[address] [facility] 10/11 12:01 Order name: Labs collected and sent; Complete Time: 12:[address] [facility] 10/11 12:01 Order name: O2 Per Protocol; Complete Time: 12:[address] [facility] 10/11 12:01 Order name: O2 Sat Monitoring; Complete Time: 12:[address] [facility] 10/11 12:01 Order name: Shoulder Left (2 View) XRAY; Complete Time: 14:[address] [facility] 10/11 14:27 Order name: Cervical Collar; Complete Time: 15:[address] [facility] EC:33 Rate is 113 beats/min. Rhythm is regular. QRS Odell is Normal. SD interval is normal. [facility] QRS interval is normal. QT interval is normal. No Q waves. T waves are Normal. No ST changes noted. Clinical impression: Sinus tachycardia and No evidence of ischemia. Interpreted by me. Reviewed by me. Administered Medications: 16:37 Discontinued: NS 0.9% 1000 ml IV at 125 ml/hr continuous iw 13:20 Drug: NS 0.9% 500 ml Route: IV; Rate: bolus; Site: left antecubital; aa5 14:00 Follow up: IV Status: Completed infusion; IV Intake: 500ml aa5 13:20 Drug: Zofran (Ondansetron) 4 mg Route: IVP; Site: left antecubital; aa5 13:25 Follow up: Response: No adverse reaction aa5 13:20 Drug: fentaNYL (PF) 25 mcg Route: IVP; Site: left antecubital; aa5 13:25 Follow up: Response: No adverse reaction aa5 13:20 Drug: NS 0.9% 1000 ml Route: IV; Rate: 125 ml/hr; Site: left antecubital; aa5 14:09 Drug: fentaNYL (PF) 25 mcg Route: IVP; Site: left antecubital; aa5 14:15 Follow up: Response: No adverse reaction aa5 15:41 Not Given (Patient Refused): Nicotine Patch 21 mg/24 hr 1 patches Transdermal once aa5 16:32 Drug: fentaNYL (PF) 50 mcg Route: IVP; Site: left antecubital; iw 16:36 Follow up: Response: No adverse reaction iw 16:32 Drug: Zofran (Ondansetron) 4 mg Route: IVP; Site: left antecubital; iw 16:37 Follow up: Response: No adverse reaction iw Disposition Summary: 10/11/20 14:39 Transfer Ordered Transfer Location: [facility] Reason: Higher level of care krunal Condition: Serious krunal Problem: new krunal Symptoms: have improved krunal Accepting Physician: to [facility](10/11/20 16:52) aa5 Diagnosis - Fracture of sixth cervical vertebra - metastatic krunal - Radiculopathy, cervical region krunal - Other disorders of lung - stage 4 cancer, metastatic krunal - Fracture of thoracic vertebra - T5 krunal Forms: - Medication Reconciliation Form krunal - SBAR form krunal Signatures: Dispatcher [employer] EDAlex Leblanc MD MD cha Williams, Irene, RN RN Ayanna Mccormack RN RN aa5 Corrections: (The following items were deleted from the chart) 15:25 14:45 CORONAVIRUS+[id number].BRZ ordered. EDOR EDMS 16:52 14:39 to [facility] krunal aa5
--- NOTE | 2020-10-11 14:39 | ER ---
Nurse's Notes [facility] Name: Cookie Keller Age: 65 yrs Sex: Female : 1955 Arrival Date: 10/11/2020 Time: 11:43 Bed 6 Private MD: Diagnosis: Fracture of sixth cervical vertebra-metastatic;Radiculopathy, cervical region;Other disorders of lung-stage 4 cancer, metastatic;Fracture of thoracic vertebra-T5 Presentation: 10/11 11:44 Chief complaint: EMS states: left shoulder pain 5/10 since after chemo, feels iw like it pulled out of socket, worse when she sits up, denies injury, pt has hx of lung cancer, mets to brain, spine, and liver. Coronavirus screen: At this time, the client does not indicate any symptoms associated with coronavirus-19. Ebola Screen: Patient negative for fever greater than or equal to 101.5 degrees Fahrenheit, and additional compatible Ebola Virus Disease symptoms Patient denies exposure to infectious person. Patient denies travel to an Ebola-affected area in the 21 days before illness onset. No symptoms or risks identified at this time. Initial Sepsis Screen: Does the patient meet any 2 criteria? No. Patient's initial sepsis screen is negative. Does the patient have a suspected source of infection? No. Patient's initial sepsis screen is negative. Risk Assessment: Do you want to hurt yourself or someone else? Patient reports no desire to harm self or others. Onset of symptoms was October 06, 2020. 11:44 Method Of Arrival: EMS: [facility] iw 11:44 Acuity: MIMI 3 iw Historical: - Allergies: 11:49 No Known Allergies; iw - PMHx: 11:48 Cancer; COPD; Fibromyalgia; Hypertension; sciatica; iw - Immunization history:: Adult Immunizations unknown. - Family history:: not pertinent. - Social history:: Smoking status: Patient reports the use of cigarette tobacco products, denies chronic smoking, but will smoke occasionally. Screenin:00 Abuse screen: Denies threats or abuse. Nutritional screening: No deficits noted. aa5 Tuberculosis screening: No symptoms or risk factors identified. Fall Risk None identified. Assessment: 12:00 General: Appears uncomfortable, Behavior is calm, cooperative. Pain: Complains of pain aa5 in left shoulder Pain does not radiate. Pain radiates to anterior aspect of left upper chest Pain currently is 8 out of 10 on a pain scale. Quality of pain is described as sharp, shooting, Pain began 1 day ago. Is continuous. Neuro: Level of Consciousness is awake, alert, obeys commands, Oriented to person, place, time, situation. Cardiovascular: Heart tones S1 S2 present Rhythm is regular. Respiratory: Reports shortness of breath cough that is Report hx of lung cancer and receiving chemotherapy for approximately 6 months. Airway is patent Respiratory effort is even, unlabored, Respiratory pattern is regular, symmetrical, Breath sounds are clear bilaterally. GI: Abdomen is round non-distended, Bowel sounds present X 4 quads. Abd is soft and non tender X 4 quads. Patient currently denies nausea. : No signs and/or symptoms were reported regarding the genitourinary system. EENT: No signs and/or symptoms were reported regarding the EENT system. Derm: Skin is pink, warm \T\ dry. Musculoskeletal: Range of motion: intact in all extremities. 12:55 Reassessment: PT currently in CT . aa5 13:20 Reassessment: Pt back from CT scan . aa5 13:20 Reassessment: Patient is alert, oriented x 3, equal unlabored respirations, skin aa5 warm/dry/pink. Patient states feeling better. 13:20 Pain: Pain currently is 6 out of 10 on a pain scale. aa5 14:15 Reassessment: Patient is alert, oriented x 3, equal unlabored respirations, skin aa5 warm/dry/pink. Patient states feeling better. 14:15 Pain: Pain currently is 5 out of 10 on a pain scale. aa5 14:30 Reassessment: Awaiting for MD to speak to pt about results and disposition. . aa5 15:01 Reassessment: report given to ER triage nurse at [place]. iw 15:15 Reassessment: MD at bedside speaking to pt. . aa5 15:15 Reassessment: Patient is alert, oriented x 3, equal unlabored respirations, skin aa5 warm/dry/pink. 15:30 Reassessment: C-collar applied. aa5 16:30 Reassessment: Patient is alert, oriented x 3, equal unlabored respirations, skin aa5 warm/dry/pink. EMS at bedside . Vital Signs: 11:51 BP 151 / 87; Pulse 124; Resp 20 S; Pulse Ox 92% on R/A; iw 13:25 BP 127 / 75; Pulse 120; Resp 18 S; Pulse Ox 90% on R/A; aa5 16:32 BP 146 / 74; Pulse 84; Resp 16; Pulse Ox 98% on 2 lpm NC; iw ED Course: 11:43 Patient arrived in ED. iw 11:45 Ayanna Pinzon, RN is Primary Nurse. aa5 11:46 Alex Adorno MD is Attending Physician. [facility] 11:48 Triage completed. iw 11:52 Arm band placed on. iw 12:00 Patient has correct armband on for positive identification. Bed in low position. Call aa5 light in reach. Side rails up X2. materials engineer on. Pulse ox on. NIBP on. 12:40 Initial lab(s) drawn, by me, sent to lab. Inserted saline lock: 20 gauge in left aa5 antecubital area, using aseptic technique. Blood collected. 12:47 XRAY Chest (1 view) In Process Unspecified. EDMS 12:47 Shoulder Left (2 View) XRAY In Process Unspecified. EDMS 13:04 CT C Spine In Process Unspecified. EDMS 13:06 CT Chest, Abdomen, Pelvis - W/Contrast In Process Unspecified. EDMS 15:23 transfer to [facility] initiated by Dr Alex Adorno, pt accepted by dr Singer, admin bd approval given by Dejon Baptiste. 16:36 No provider procedures requiring assistance completed. Patient transferred, IV remains iw in place. Administered Medications: 16:37 Discontinued: NS 0.9% 1000 ml IV at 125 ml/hr continuous iw 13:20 Drug: NS 0.9% 500 ml Route: IV; Rate: bolus; Site: left antecubital; aa5 14:00 Follow up: IV Status: Completed infusion; IV Intake: 500ml aa5 13:20 Drug: Zofran (Ondansetron) 4 mg Route: IVP; Site: left antecubital; aa5 13:25 Follow up: Response: No adverse reaction aa5 13:20 Drug: fentaNYL (PF) 25 mcg Route: IVP; Site: left antecubital; aa5 13:25 Follow up: Response: No adverse reaction aa5 13:20 Drug: NS 0.9% 1000 ml Route: IV; Rate: 125 ml/hr; Site: left antecubital; aa5 14:09 Drug: fentaNYL (PF) 25 mcg Route: IVP; Site: left antecubital; aa5 14:15 Follow up: Response: No adverse reaction aa5 15:41 Not Given (Patient Refused): Nicotine Patch 21 mg/24 hr 1 patches Transdermal once aa5 16:32 Drug: fentaNYL (PF) 50 mcg Route: IVP; Site: left antecubital; iw 16:36 Follow up: Response: No adverse reaction iw 16:32 Drug: Zofran (Ondansetron) 4 mg Route: IVP; Site: left antecubital; iw 16:37 Follow up: Response: No adverse reaction iw Intake: 14:00 IV: 500ml; Total: 500ml. aa5 Outcome: 14:39 ER care complete, transfer ordered by . krunal 16:36 Transferred by ground EMS [facility]. to [facility], Transfer form completed. iw X-rays sent w/ patient. 16:36 Condition: stable 16:36 Discharge instructions given to patient, family, Instructed on the need for transfer. 16:45 Patient left the ED. aa5 Signatures: Dispatcher [employer] EDMS Niyah Feliciano Corey, MD MD cha Williams, Irene, RN RN Ayanna Mccormack RN RN aa5 Corrections: (The following items were deleted from the chart) 11:51 11:44 Chief complaint: EMS states: left shoulder pain 5/10 since after chemo, iw feels like it pulled out of socket, worse when she sits up, pt has hx of lung cancer, mets to brain, spine, and liver iw 15:49 13:20 Reassessment: Patient is alert, oriented x 3, equal unlabored respirations, skin aa5 warm/dry/pink. aa5 18:21 16:52 Patient left the ED. aa5 aa5
[2020-10-11] MEDS ORDERED: NICOTINE 21 MG/PAT TD ONE (15:54)
[2020-10-11 17:03] VITALS: BP 146/74; O2SAT 98
--- NOTE | 2020-10-12 13:02 | EKG ---
Test Date: 2020-10-11 Test Time: 12:36:50 Clin Tech: KATY MEASUREMENT RESULTS: Intervals: Rate: 113 MD: 148 QRSD: 60 QT: 302 QTc: 414 Warren: P: 46 MD: 148 QRS: 34 T: 1 INTERPRETIVE STATEMENTS: Sinus tachycardia Otherwise normal ECG Compared to ECG 03/19/2017 09:31:49 Sinus rhythm no longer present T-wave abnormality no longer present Electronically Signed On 10-12-20 12:59:39 CDT by Esvin [place]
== END 2020-10-11 16:52 | disposition short-term general hospital (02) ==
LOC: ER 11:43
DX: M84.58XA Pathological fracture in neoplastic disease, other specified site, initial encounter for fracture (principal); C34.92 Malignant neoplasm of unspecified part of left bronchus or lung; M54.12 Radiculopathy, cervical region; I10 Essential (primary) hypertension; F17.210 Nicotine dependence, cigarettes, uncomplicated; Z20.822 Contact with and (suspected) exposure to COVID-19
CPT/HCPCS: 96361; 93005; 85025; 80048; 36415; 83735; 85610; 82565; 80076; 84484; 83690; 83880; 72125; 71260; 74177; 71045; 73030; 96375; 96374; 99285; U0003; Q9967; J3010 ×2; J7040; J7030; J2405 ×2